=== PATIENT | female | born 1995 | race Caucasian/White ===

== ENCOUNTER 2019-03-19 19:34 | Emergency (ER) | payer OTHER ==
[~2019-03-19] VITALS: Ht 162.6 cm; Wt 61.4 kg
[~2019-03-19 19:34] MED LIST: ACETAMINOPHEN W1 TA6 PO; BACTRIM DS 8001 TAB PO; CEFTIN500 MG PO; CEPHALEXIN250 M1 PO; CIPRO 500MG TA500 MG PO; CYMBALTA 30MG30 MG PO; CYMBALTA 60MG60 MG PO; EPIPEN 2-PAK1 MG/ML IM; FLEXERIL5 MG PO; HYDROCODONE AN473 M1 PO; MOTRIN 600600 MG/TAB PO; NO HOME MEDICATIONS; NORCO 325 MG-101 TAB PO; NORCO 325 MG-51 TAB PO; NORCO 325 MG-7.1 TAB PO; PEPCID 20MG TAB20 MG PO; PHENERGAN 25 TA25 MG PO; PHENERGAN W/CO120 M1 PO; PREDNISONE20 MG PO; PROMETHAZINE12.5 M5 PO; TAMIFLU 75MG75 MG PO; ULTRAM 50MG TAB50 MG PO; VENTOLIN0.09 MG IH; ZITHROMAX Z PA250 MG PO; ZOFRAN ODT4 MG PO; ZOFRAN8 MG PO
[2019-03-19 19:41] VITALS: BP 130/62; TEMP 97.2
[2019-03-19] MEDS ORDERED: OMNICEF 300MG300 MG PO (20:51)
[2019-03-19] MEDS ORDERED: TUSS PO (20:51)
[2019-03-19 21:28] VITALS: PULSE 59
== END 2019-03-19 21:28 | disposition home or self-care (01) ==
LOC: COL.ER 19:34
DX: J06.9 Acute upper respiratory infection, unspecified (principal)

== ENCOUNTER 2019-04-25 23:29 | Emergency (ER) | payer BC, OTHER ==
[~2019-04-25] VITALS: Ht 162.6 cm; Wt 61.4 kg
[~2019-04-25 23:29] MED LIST changes: +OMNICEF 300MG300 MG PO; +TUSS PO
[2019-04-25 23:41] VITALS: BP 136/64; TEMP 98.4
[2019-04-26 01:51] LABS: COLLECTION METHOD CLEAN CATCH
[2019-04-26 01:56] LABS: MUCOUS Present /lpf; PH 5 (5-8); URINE APPEARANCE Clear; URINE BACTERIA Rare /hpf; URINE BILIRUBIN Negative (NEGATIVE); URINE BLOOD 2+ (NEGATIVE); URINE COLOR Yellow; URINE GLUCOSE Negative (NEGATIVE); URINE KETONE Negative (NEGATIVE); URINE LEUKOCYTE ESTERASE Negative (NEGATIVE); URINE NITRATE Negative (NEGATIVE); URINE PROTEIN(semi-quant) Negative (NEGATIVE); URINE RBC 0-2 /hpf; URINE UROBILINOGEN Negative (NEGATIVE)
[2019-04-26 03:00] VITALS: PULSE 70
== END 2019-04-26 03:00 | disposition home or self-care (01) ==
LOC: COL.ER 23:29
PROVIDERS: Emergency Medicine
DX: M54.5 Low back pain (principal)

== ENCOUNTER 2020-04-13 17:09 | Emergency (ER) | payer BC, OTHER ==
[~2020-04-13] VITALS: Ht 162.6 cm; Wt 62.7 kg
[2020-04-13 17:38] VITALS: TEMP 97.7
[2020-04-13 18:53] LABS: COLLECTION METHOD CLEAN CATCH
[2020-04-13 19:07] LABS: MUCOUS Present /lpf; PH 7 (5-8); SQUAMOUS EPITHELIAL 0-2 /hpf; URINE APPEARANCE Clear; URINE BACTERIA Rare /hpf; URINE BILIRUBIN Negative (NEGATIVE); URINE BLOOD Negative (NEGATIVE); URINE COLOR Straw; URINE GLUCOSE Negative (NEGATIVE); URINE KETONE Negative (NEGATIVE); URINE LEUKOCYTE ESTERASE Negative (NEGATIVE); URINE NITRATE Negative (NEGATIVE); URINE PROTEIN(semi-quant) Negative (NEGATIVE); URINE RBC 0-2 /hpf; URINE UROBILINOGEN Negative (NEGATIVE)
[2020-04-13 19:51] LABS: BASO % 0.2 % (0.0-2.0); EOS % 0.2 % (0-4.0); GRAN % 71.2 % (42.2-75.2); HEMOGLOBIN 12.1 g/dl (12.5-16.0); LYMPH % 23.4 % (20.0-51.0); MEAN CELL VOLUME 87 fl (80.0-100.0); MEAN CORPUSCULAR HEMOGLOBIN 30 pg (27.0-31.0); MEAN CORPUSCULAR HGB CONC 34 g/dl (33.0-37.0); MEAN PLATELET VOLUME 10.2 fl (7.4-10.4); MONO # 0.4 (0.1-0.6); MONO % 4.8 % (1.7-9.3); PLATELET COUNT 261 K/mm3 (130-400); RED BLOOD COUNT 4.03 M/mm3 (4.10-5.30); REDCELL DISTRIBUTION WIDTH-CV 12.9 % (11.5-14.5)
[2020-04-13 19:56] LABS: HEMATOCRIT 35.2 % (37.0-47.0)
[2020-04-13 21:04] VITALS: BP 126/71; PULSE 73
== END 2020-04-13 21:00 | disposition home or self-care (01) ==
LOC: COL.ER 17:09
PROVIDERS: Emergency Medicine; Nurse Practitioner
DX: O20.0 Threatened abortion (principal); Z3A.12 12 weeks gestation of pregnancy; Z88.1 Allergy status to other antibiotic agents; Z88.6 Allergy status to analgesic agent